=== PATIENT | male | born 1985 | race Caucasian/White ===

== ENCOUNTER 2024-11-08 11:38 | Inpatient (IN) | payer OTHER ==
[~2024-11-08] VITALS: Ht 190.5 cm; Wt 186.8 kg
[~2024-11-08 11:38] MED LIST: AZIT250 PO; Percocet 5-3251 EACH PO
[2024-11-08 12:41] LABS: BASOPHILS ABSOLUTE AUTO 0.04 K/mm3 (0.00-0.23); BASOPHILS PERCENT AUTO 0 % (0-2); EOSINOPHILS PERCENT AUTO 0 % (0-6); Hematocrit 42.7 % (37.0-53.0); Hemoglobin 14.9 g/dL (13.5-17.5); IMMATURE GRAN ABSOLUTE AUTO 0.09 K/mm3 (0.00-0.10); IMMATURE GRAN PERCENT AUTO 0 % (0-1); LYMPHOCYTES ABSOLUTE AUTO 0.99 K/mm3 (0.84-5.20); LYMPHOCYTES PERCENT AUTO 5 % (21-46); MONOCYTES ABSOLUTE AUTO 1.23 K/mm3 (0.16-1.47); MONOCYTES PERCENT AUTO 6 % (4-13); Mean Corpuscular HGB 28.5 pg (26.0-34.0); Mean Corpuscular HGB Conc 34.9 g/dL (31.5-36.5); Mean Corpuscular Volume 82 fL (80-100); Mean Platelet Volume 8.9 fL (9.1-12.4); NEUTROPHILS ABSOLUTE AUTO 18.33 K/mm3 (1.96-9.15); NEUTROPHILS PERCENT AUTO 89 % (41-73); Platelet Count 193 K/mm3 (150-400); RDW Coefficient Variation 12.8 % (11.7-14.2); Red Blood Cell Count 5.23 M/mm3 (4.30-5.90); White Blood Cell Count 20.68 K/mm3 (4.00-11.30)
[2024-11-08 13:05] LABS: CORONAVIRUS COVID-19 AG Negative (NEGATIVE); INFLUENZA A AG Negative (NEGATIVE); INFLUENZA B AG Negative (NEGATIVE)
[2024-11-08 13:06] LABS: Albumin, Blood 3.1 g/dL (3.4-5.0); Albumin/Globulin Ratio 0.6 (0.8-1.8); Bilirubin, Total 1.2 mg/dL (0.1-1.0); Bun/Creatinine Ratio 12.6 (12.0-20.0); Calcium, Blood 8.8 mg/dL (8.5-10.1); Creatinine, Blood 0.79 mg/dL (0.60-1.20); Globulin, Blood 4.8 g/dL (2.2-4.0); Potassium, Blood 3.5 mmol/L (3.5-5.5); Total Protein, Blood 7.9 g/dL (6.4-8.2)
[2024-11-08] MEDS ORDERED: NS 1,000 ML IV SCH (13:35)
[2024-11-08] MEDS ORDERED: Azithromycin 500 MG in NS 250 ML IV ONE (13:50)
[2024-11-08] MEDS ORDERED: Ondansetron HCl 2 MG / ML 2ML Vial IV ONE (13:50)
[2024-11-08] MEDS ORDERED: CefTRIAXone Sodium 1,000 MG in NS 100 ML IV ONE (13:50)
[2024-11-08] MEDS ORDERED: Midazolam HCl 1MG / ML 2ML Vial IV ONE (15:01)
[2024-11-08] MEDS ORDERED: Propofol 10mg/ml 20 ml Vial (Procedural) IV ONE (15:01)
[2024-11-08] MEDS ORDERED: Ketamine HCl 100 MG / ML 5ML Vial IV ONE (15:01)
[2024-11-08] MEDS ORDERED: NS 1,000 ML IV ONE ×2 (15:10→16:46)
[2024-11-08] MEDS ORDERED: Albuterol 2.5 MG/3 ML VIAL INH PRN (15:10)
[2024-11-08] MEDS ORDERED: Acetaminophen 325 MG TABLET PO PRN (15:10)
[2024-11-08] MEDS ORDERED: FLU VACC TS2024-25(6MOS UP)/PF 45 MCG/0.5 ML SYRINGE IM PRN (15:15)
[2024-11-08] MEDS ORDERED: Ipratropium/Albuterol SulF 2.5-0.5MG/3 ML Amp INH SCH (15:15)
[2024-11-08 15:46] LABS: Base Excess Venous -1.4 mmol/L; Bicarbonate Venous 23.9 mmol/L (24.0-30.0); PCO2 Venous 30.7 mmHg (38-42); pH Blood Venous 7.47 (7.34-7.37)
[2024-11-08 17:59] VITALS: BP 147/85
--- NOTE | 2024-11-08 18:48 | NUR ---
SHIFT SUMMARY PT A&OX4, AMB W/ SBA, ON 4L O2 NC, TOLERATING PO, AND DENIED PAIN. PT TEMP ELEVATED, NOTIFIED DURING ROUND ON PT. CALL LIGHT WITHIN REACH AND PT ABLE TO MAKE NEEDS KNOWN.
[2024-11-08] MEDS ORDERED: Mometasone/Formoterol MDI 200/5 mcg 13 GM INH SCH (19:20)
[2024-11-08 19:59] VITALS: BP 134/64
[2024-11-08] MEDS ORDERED: GuaiFENesin 600 MG TabCR PO SCH (21:00)
[2024-11-08] MEDS ORDERED: Temazepam 15 MG Cap PO ONE (22:35)
[2024-11-09 03:47] VITALS: BP 178/87
--- NOTE | 2024-11-09 04:40 | NUR ---
SHIFT SUMMARY PT ALERT AND ORIENTED TIMES 4. PT ADMITTED FOR SEPSIS DUE TO PNEUMONIA. PT HAS HISTORY OF ASTHMA AND SLEEP APNEA. PT IS STAND BY ASSIST TIMES ONE. MEDICATION WHOLE WITH WATER. PT IS RECEPTIVE TO CARE. PT IS ON 4L OF O2, USES HIS OWN C-PAP MACHINE. OBTAINED ORDER FROM VIAL GAUGER DR FOR TEMAZEPAM FOR SLEEP. CALL LIGHT WITHIN REACH, RAILS TIMES 2, BED IN LOW POSITION.
[2024-11-09 05:29] LABS: Hematocrit 39.9 % (37.0-53.0); Hemoglobin 13.7 g/dL (13.5-17.5); Mean Corpuscular HGB Conc 34.3 g/dL (31.5-36.5); Mean Corpuscular Volume 81 fL (80-100); Mean Platelet Volume 9.6 fL (9.1-12.4); Platelet Count 212 K/mm3 (150-400); RDW Coefficient Variation 12.8 % (11.7-14.2); RDW Standard Deviation 38.1 fL (35.1-46.3); White Blood Cell Count 22.17 K/mm3 (4.00-11.30)
[2024-11-09 05:50] LABS: Bun/Creatinine Ratio 12.4 (12.0-20.0); Calcium, Blood 7.9 mg/dL (8.5-10.1); Creatinine, Blood 1.05 mg/dL (0.60-1.20); Potassium, Blood 2.9 mmol/L (3.5-5.5)
[2024-11-09 07:15] VITALS: BP 166/84
[2024-11-09] MEDS ORDERED: NS 250 ML IV PRN (07:25)
[2024-11-09] MEDS ORDERED: Potassium Chloride 20 MEQ TabCR PO ONE (08:10)
[2024-11-09] MEDS ORDERED: Enoxaparin 40 MG/0.4 ML SYR SC SCH (09:00)
[2024-11-09] MEDS ORDERED: CefTRIAXone Sodium 1,000 MG in NS 100 ML IV SCH (09:00)
[2024-11-09] MEDS ORDERED: Azithromycin 500 MG in NS 250 ML IV SCH (09:00)
[2024-11-09 09:37] LABS: Acinetobacter baumannii DNA Not Detected copy/mL (NOT DETECT); Enterobacter cloacae DNA Not Detected copy/mL (NOT DETECT); Escherichia coli DNA Not Detected copy/mL (NOT DETECT); Haemophilus influenzae DNA Not Detected copy/mL (NOT DETECT); Klebsiella aerogenes DNA Not Detected copy/mL (NOT DETECT); Klebsiella oxytoca DNA Not Detected copy/mL (NOT DETECT); Klebsiella pneumoniae DNA Not Detected copy/mL (NOT DETECT); Moraxella catarrhalis DNA Not Detected copy/mL (NOT DETECT); Proteus sp DNA Not Detected copy/mL (NOT DETECT); Pseudomonas aeruginosa DNA Not Detected copy/mL (NOT DETECT); Serratia marcescens DNA Not Detected copy/mL (NOT DETECT)
[2024-11-09 09:38] LABS: Staphylococcus aureus DNA Detected Bin >=10^7 copy/mL (NOT DETECT); Streptococcus agalactiae DNA Not Detected copy/mL (NOT DETECT); Streptococcus pneumoniae DNA Not Detected copy/mL (NOT DETECT); Streptococcus pyogenes DNA Not Detected copy/mL (NOT DETECT); mecA/C and MREJ Resist Gene Detected
[2024-11-09 09:39] LABS: Adenovirus DNA Not Detected (NOT DETECT); Chlamydia pneumonia Not Detected (NOT DETECT); Human Coronavirus RNA Not Detected (NOT DETECT); Human Metapneumovirus RNA Not Detected (NOT DETECT); Influenza virus B RNA Not Detected (NOT DETECT); Legionella pneumophila Not Detected (NOT DETECT); Mycoplasma pneumoniae Not Detected (NOT DETECT); Parainfluenza virus RNA Not Detected (NOT DETECT); Respiratory syncytial Vir RNA Not Detected (NOT DETECT); Rhinovirus+Enterovirus RNA Not Detected (NOT DETECT)
[2024-11-09 16:22] VITALS: BP 177/102
--- NOTE | 2024-11-09 17:47 | NUR ---
SHIFT SUMMARY PT'S SPUTUM POSITIVE FOR FLU, ISOLATION ORDER IN EM[facility]. PT HAD CT THIS SHIFT, SEE IMAGING. MRI ORDERED, BUT PT UNABLE TO COMPLETE DUE TO WEIGHT LIMIT. NOTIFIED AND AWARE. NO OTHER ACUTE CHANGES. CALL LIGHT WITHIN REACH AND PT ABLE TO MAKE NEEDS KNOWN.
[2024-11-09 20:57] VITALS: BP 166/77
[2024-11-10 03:16] VITALS: BP 124/113
[2024-11-10 04:49] LABS: Hematocrit 36.8 % (37.0-53.0); Hemoglobin 13.1 g/dL (13.5-17.5); Mean Corpuscular HGB Conc 35.6 g/dL (31.5-36.5); Mean Corpuscular Volume 79 fL (80-100); Mean Platelet Volume 9.1 fL (9.1-12.4); Platelet Count 245 K/mm3 (150-400); RDW Coefficient Variation 12.9 % (11.7-14.2); RDW Standard Deviation 36.8 fL (35.1-46.3); Red Blood Cell Count 4.68 M/mm3 (4.30-5.90); White Blood Cell Count 21.98 K/mm3 (4.00-11.30)
[2024-11-10 05:15] LABS: Albumin, Blood 2.4 g/dL (3.4-5.0); Anion Gap 11 mmol/L (3-11); Blood Urea Nitrogen 12 mg/dL (8-24); Bun/Creatinine Ratio 14.3 (12.0-20.0); CO2, Blood 22 mmol/L (21-32); Calcium, Blood 8.3 mg/dL (8.5-10.1); Chloride, Blood 102 mmol/L (98-108); Creatinine, Blood 0.84 mg/dL (0.60-1.20); Glomerular Filtration Rate 115 (60-); Glucose, Blood 139 mg/dL (70-99); Magnesium, Blood 1.6 mg/dL (1.6-2.4); Phosphorus, Blood 1.5 mg/dL (2.5-4.9); Potassium, Blood 2.8 mmol/L (3.5-5.5); Sodium, Blood 132 mmol/L (136-145)
--- NOTE | 2024-11-10 05:22 | NUR ---
SHIFT SUMMARY PT ALERT AND ORIENTED TIMES 4. PT ADMITTED FOR SEPSIS DUE TO PNEUMONIA. PT HAS HISTORY OF ASTHMA AND SLEEP APNEA. PT IS STAND BY ASSIST TIMES ONE. MEDICATION WHOLE WITH WATER. PT IS RECEPTIVE TO CARE. PT IS ON 4L OF O2, USES HIS OWN C-PAP MACHINE. PT TOOK SHOWER TONIGHT.APPEARED TO SLEEP ON AND OFF DURING SHIFT. PT HAD TEMP OF 103, TYLENOL ADMINISTERED AND TEMP RE-CHECKED. PT ABLE TO AMBULATE TO USE TOILET. CALL LIGHT WITHIN REACH, RAILS TIMES 2, BED IN LOW POSITION.
[2024-11-10 07:38] VITALS: BP 153/107
[2024-11-10] MEDS ORDERED: Potassium Phosphate Dibasic 25 MM in Dextrose 5% 500 ML IV STA (08:01)
[2024-11-10] MEDS ORDERED: Potassium Phosphate Dibasic 30 MM in Dextrose 5% 500 ML IV STA (08:04)
[2024-11-10] MEDS ORDERED: Prochlorperazine Edisylate 10 mg Vial IV PRN (10:20)
[2024-11-10] MEDS ORDERED: Vancomycin HCL 2,500 MG in NS 500 ML IV SCH (15:00)
[2024-11-10 15:35] VITALS: BP 155/91
--- NOTE | 2024-11-10 19:33 | NUR ---
PATIENT STARTED ON VANCOMYCIN, ALERT AND OREINTED X4, PLEASANT TO CARE, NOT INAPPROPRIATE TO STAFF, ENCOURAGED AM SPUTUMN FOR SAMPLE, FAMILY VISITED TODAY, PATIENT SHOWERED, CALL LIGHT WITH IN REACH, CPAP ON, CALL LIGHT WITH IN REACH
[2024-11-10 20:41] VITALS: BP 148/96
[2024-11-10] MEDS ORDERED: Doxycycline Hyclate 100 MG TAB PO SCH (21:00)
[2024-11-10] MEDS ORDERED: Melatonin 5 MG Tablet PO PRN (21:00)
[2024-11-10] MEDS ORDERED: Vancomycin HCL 1,500 MG in NS 250 ML IV SCH (23:00)
[2024-11-11 05:15] VITALS: BP 150/98
[2024-11-11 07:46] VITALS: BP 186/99
[2024-11-11 08:43] LABS: Hematocrit 36.6 % (37.0-53.0); Hemoglobin 12.7 g/dL (13.5-17.5); Mean Corpuscular HGB 27.9 pg (26.0-34.0); Mean Corpuscular HGB Conc 34.7 g/dL (31.5-36.5); Mean Corpuscular Volume 80 fL (80-100); Platelet Count 269 K/mm3 (150-400); RDW Coefficient Variation 13.1 % (11.7-14.2); RDW Standard Deviation 37.9 fL (35.1-46.3); Red Blood Cell Count 4.55 M/mm3 (4.30-5.90); White Blood Cell Count 17.95 K/mm3 (4.00-11.30)
[2024-11-11 09:02] LABS: Bun/Creatinine Ratio 14.7 (12.0-20.0); Calcium, Blood 8.3 mg/dL (8.5-10.1); Creatinine, Blood 0.75 mg/dL (0.60-1.20)
[2024-11-11] MEDS ORDERED: Potassium Chloride 20 MEQ TabCR PO ONE (12:35)
[2024-11-11 14:37] LABS: Vancomycin, Trough 11.7 ug/mL (5.0-10.0)
[2024-11-11 16:44] VITALS: BP 168/96
--- NOTE | 2024-11-11 18:17 | NUR ---
NO ACUTE CHANGES, ECHO TODAY 50-60%, MORE AMBULATORY TODAY, PLEASANT AND COOPERATIVE, 98% ON RA, ENCOURAGED DEEP BREATHING, CALL LIGHT WITH IN REACH, WILL RELAY TO PM RN
[2024-11-11 20:22] VITALS: BP 151/91
[2024-11-12 04:33] VITALS: BP 143/80
[2024-11-12 05:30] LABS: Hematocrit 35.5 % (37.0-53.0); Hemoglobin 12.1 g/dL (13.5-17.5); Mean Corpuscular HGB 27.5 pg (26.0-34.0); Mean Corpuscular HGB Conc 34.1 g/dL (31.5-36.5); Mean Corpuscular Volume 81 fL (80-100); Mean Platelet Volume 9.2 fL (9.1-12.4); Platelet Count 288 K/mm3 (150-400); RDW Coefficient Variation 13.2 % (11.7-14.2); RDW Standard Deviation 38.8 fL (35.1-46.3); White Blood Cell Count 16.57 K/mm3 (4.00-11.30)
[2024-11-12 06:01] LABS: Albumin, Blood 2.1 g/dL (3.4-5.0); Anion Gap 10 mmol/L (3-11); Blood Urea Nitrogen 15 mg/dL (8-24); Bun/Creatinine Ratio 19.1 (12.0-20.0); CO2, Blood 26 mmol/L (21-32); Chloride, Blood 102 mmol/L (98-108); Creatinine, Blood 0.79 mg/dL (0.60-1.20); Glomerular Filtration Rate 117 (60-); Glucose, Blood 117 mg/dL (70-99); Magnesium, Blood 1.8 mg/dL (1.6-2.4); Phosphorus, Blood 3.8 mg/dL (2.5-4.9); Potassium, Blood 2.8 mmol/L (3.5-5.5); Sodium, Blood 135 mmol/L (136-145)
[2024-11-12] MEDS ORDERED: Potassium Chloride 20 MEQ TabCR PO ONE (07:40)
[2024-11-12 08:04] VITALS: BP 149/81
[2024-11-12 16:27] VITALS: BP 138/107
--- NOTE | 2024-11-12 17:05 | NUR ---
PT REPORTS TO THIS RN THAT IV IS TENDER, SWOLLEN AND RED. SWELLING NOTEDON LEFT WRIST AT IV INSERTION SITE. ARM SLIGHTLY WARM WITH SLIGHT REDNESS EXTENDING UP 3/4 OF FOREARM. PT EDUCATION PROVIDED TO ELEVATE AND APPLY WARM COMPRESSES TO LEFT ARM. WARM COMPRESS GIVEN TO PATIENT AND PATIENT IS ELEVATING EXTREMITY INSTRUCTED
[2024-11-12 19:14] VITALS: BP 160/89
[2024-11-13] VITALS (15 sets, daily range): BP systolic 145–171; BP diastolic 80–111
[2024-11-13 06:15] LABS: Hemoglobin 12.4 g/dL (13.5-17.5); Mean Corpuscular HGB 28.1 pg (26.0-34.0); Mean Corpuscular HGB Conc 34.4 g/dL (31.5-36.5); Mean Corpuscular Volume 81 fL (80-100); Mean Platelet Volume 9.4 fL (9.1-12.4); Platelet Count 270 K/mm3 (150-400); RDW Coefficient Variation 13.3 % (11.7-14.2); RDW Standard Deviation 39.7 fL (35.1-46.3); Red Blood Cell Count 4.42 M/mm3 (4.30-5.90); White Blood Cell Count 14.97 K/mm3 (4.00-11.30)
[2024-11-13 06:57] LABS: Magnesium, Blood 1.9 mg/dL (1.6-2.4)
[2024-11-13 06:58] LABS: Albumin, Blood 2.1 g/dL (3.4-5.0); Anion Gap 8 mmol/L (3-11); Blood Urea Nitrogen 15 mg/dL (8-24); CO2, Blood 28 mmol/L (21-32); Calcium, Blood 8.2 mg/dL (8.5-10.1); Chloride, Blood 102 mmol/L (98-108); Creatinine, Blood 0.75 mg/dL (0.60-1.20); Glomerular Filtration Rate 119 (60-); Glucose, Blood 111 mg/dL (70-99); Phosphorus, Blood 3.9 mg/dL (2.5-4.9); Potassium, Blood 3.1 mmol/L (3.5-5.5); Sodium, Blood 135 mmol/L (136-145)
[2024-11-13] MEDS ORDERED: Potassium Chloride 20 MEQ TabCR PO ONE (08:00)
[2024-11-13] MEDS ORDERED: NS 1,000 ML IV ONE (09:17)
[2024-11-13] MEDS ORDERED: Benzocaine Oral Spray 0.5ML UD ONE (09:25)
[2024-11-13] MEDS ORDERED: Albuterol 2.5 MG/3 ML VIAL ONE (10:00)
--- NOTE | 2024-11-13 10:05 | NUR ---
ALBUTEROL NEB TREATMENT (ALBUTEROL SULFATE 2.5 MG/3 ML) GIVEN PER VERBAL ORDER BY DR SALDAÑA FOR PRE-PROCEDURE JAY JAY. MEDICATION PULLED FROM LAB PYXIS.
--- NOTE | 2024-11-13 10:48 | NUR ---
PATIENT TOELRATED JAY JAY PROCEDURE WELL WITH ANESTHEISA. PATIENT AWAKE, BUT DROWSY. PATEINT RESTING COMFORTABLY. VSS
[2024-11-13 15:20] LABS: Vancomycin, Trough 11.9 ug/mL (5.0-10.0)
[2024-11-13] MEDS ORDERED: Vancomycin HCL 1,750 MG in NS 500 ML IV SCH (16:00)
--- NOTE | 2024-11-13 17:24 | NUR ---
SHIFT SUMMARY: PT A&O X4. PLEASANT AND COOPERATIVE WITH CARE. INDEPENDENT IN ROOM. CONSULT WITH DR. HUGHES COMPLETED THIS AM FOR JAY JAY PROCEDURE. PROCEDURE COMPLETED SHOWING NO EVIDENCE OF ENDOCARDITIS. PLAN FOR REPEAT BLOOD CULTURES TOMORROW. PT POSSIBLY NEEDING PICC LINE D/T NEED FOR OUTPT ABX. CALL LIGHT IN REACH. BED IN LOWEST POSITION.
[2024-11-14 03:55] VITALS: BP 155/88
--- NOTE | 2024-11-14 06:11 | NUR ---
SHIFT SUMMARY PATIENT IS ALERT AND ORIENTED. PATIENT HAS HAD NO ACUTE EVENTS THIS SHIFT. PATIENT HAS BEEN IND IN ROOM THIS SHIFT. POSSIBLE PICC LINE NEEDED FOR OUTPATIENT ABX. PATIENT HAS NO COMPLAINTS OF PAIN, NAUSEA, SOB OR VOMITTING THIS SHIFT. BED IN LOCKED AND LOWEST POSITION. CALL LIGHT IN PLACE.
[2024-11-14 07:34] VITALS: BP 136/89
[2024-11-14 11:32] LABS: Hematocrit 35.2 % (37.0-53.0); Hemoglobin 12.2 g/dL (13.5-17.5); Mean Corpuscular HGB 28.3 pg (26.0-34.0); Mean Corpuscular HGB Conc 34.7 g/dL (31.5-36.5); Mean Corpuscular Volume 82 fL (80-100); Mean Platelet Volume 8.9 fL (9.1-12.4); Platelet Count 320 K/mm3 (150-400); RDW Coefficient Variation 13.2 % (11.7-14.2); RDW Standard Deviation 39.8 fL (35.1-46.3); Red Blood Cell Count 4.31 M/mm3 (4.30-5.90); White Blood Cell Count 13.86 K/mm3 (4.00-11.30)
[2024-11-14 12:07] LABS: Albumin, Blood 2.1 g/dL (3.4-5.0); Anion Gap 9 mmol/L (3-11); Blood Urea Nitrogen 13 mg/dL (8-24); Bun/Creatinine Ratio 18.1 (12.0-20.0); CO2, Blood 25 mmol/L (21-32); Chloride, Blood 107 mmol/L (98-108); Creatinine, Blood 0.72 mg/dL (0.60-1.20); Glomerular Filtration Rate 121 (60-); Glucose, Blood 106 mg/dL (70-99); Phosphorus, Blood 2.9 mg/dL (2.5-4.9); Potassium, Blood 3.5 mmol/L (3.5-5.5); Sodium, Blood 137 mmol/L (136-145)
[2024-11-14 15:16] VITALS: BP 139/94
[2024-11-14 15:26] LABS: Vancomycin, Trough 17.9 ug/mL (5.0-10.0)
--- NOTE | 2024-11-14 15:42 | NUR ---
CARE NOTE THIS RN NOTIFIED DR. WILSON AT [facility] [id number] THAT PT COULD NOT RECIEVE HEAD MRI DUE TO EXCEEDING TABLE WEIGHT PER HALF BACKER REPORT.
--- NOTE | 2024-11-14 18:02 | NUR ---
SHIFT SUMMARY PT IS ALERT AND ORIENTED X 4, HE HAS BEEN INDEPENDENT/A SBA IN ROOM. HE REPORTS FATIGUE W/ EXERTION BUT DENIES FEELING SOB. VSS, SP02 MAINTAINED >95% VIA RA WHEN AWAKE OR HOME CPAP WHILE SLEEPING. HE DENIES FEELINGS OF CHEST PAIN/PRESSURE, LIGHTHEADEDNESS/DIZZINESS OR NAUSEA. HE REPORTS NUMBNESS/TINGLING IN R ARM, DR. WILSON AWARE. HE ALSO HAS REPORTED PAIN/TENDERNESS IN L ARM DUE TO IV INFILTRATION, IV INFILTRATION SITE HAS REMAINED THE SAME SINCE PREVIOUS ASSESSMENTS. FAMILY IS CURRENTLY AT BEDSIDE. CALL LIGHT IS W/IN REACH.
[2024-11-14 19:12] VITALS: BP 151/94
[2024-11-15 03:50] VITALS: BP 153/97
[2024-11-15 06:01] LABS: Bun/Creatinine Ratio 18.5 (12.0-20.0); Calcium, Blood 7.7 mg/dL (8.5-10.1); Creatinine, Blood 0.7 mg/dL (0.60-1.20); Potassium, Blood 3.7 mmol/L (3.5-5.5)
[2024-11-15 07:27] VITALS: BP 132/94
[2024-11-15 10:29] LABS: BASOPHILS ABSOLUTE AUTO 0.04 K/mm3 (0.00-0.23); BASOPHILS PERCENT AUTO 0 % (0-2); EOSINOPHILS ABSOLUTE AUTO 0.27 K/mm3 (0.00-0.68); EOSINOPHILS PERCENT AUTO 2 % (0-6); Hematocrit 36.3 % (37.0-53.0); Hemoglobin 12.4 g/dL (13.5-17.5); IMMATURE GRAN ABSOLUTE AUTO 0.21 K/mm3 (0.00-0.10); IMMATURE GRAN PERCENT AUTO 2 % (0-1); LYMPHOCYTES ABSOLUTE AUTO 1.09 K/mm3 (0.84-5.20); LYMPHOCYTES PERCENT AUTO 9 % (21-46); MONOCYTES ABSOLUTE AUTO 0.66 K/mm3 (0.16-1.47); MONOCYTES PERCENT AUTO 6 % (4-13); Mean Corpuscular HGB Conc 34.2 g/dL (31.5-36.5); Mean Corpuscular Volume 82 fL (80-100); Mean Platelet Volume 8.6 fL (9.1-12.4); NEUTROPHILS ABSOLUTE AUTO 9.76 K/mm3 (1.96-9.15); NEUTROPHILS PERCENT AUTO 81 % (41-73); Platelet Count 339 K/mm3 (150-400); RDW Coefficient Variation 13.2 % (11.7-14.2); RDW Standard Deviation 39.6 fL (35.1-46.3); Red Blood Cell Count 4.43 M/mm3 (4.30-5.90); White Blood Cell Count 12.03 K/mm3 (4.00-11.30)
[2024-11-15 19:33] VITALS: BP 139/93
--- NOTE | 2024-11-15 19:36 | NUR ---
SHIFT SUMMARY: PT A&O X4. PLEASANT AND COOPERATIVE WITH CARE. SB ASSIST TO INDEPENDENT IN ROOM. IV ABX COMPLETED W/O COMPLICATIONS. MEDICATED ONCE PER EMAR FOR HEADACHE. PLAN FOR BLOOD CULTURES TO COME BACK TO PLACE PICC LINE FOR TWO WEEKS OUTPT ABX. PT/OT WORKING WITH PT. CALL LIGHT IN REACH. BED IN LOWEST POSITION.
--- NOTE | 2024-11-16 04:03 | NUR ---
SHIFT SUMMARY ADMITTED FOR RLL PNEUMONIA/SEPSIS. FULL CODE. ISOLATION FOR FLU A+ AND MRSA IN BLOOD. PLAN IS FOR 2 WEEKS ANTIB RX. 1ST SET OF BLOOD CULTURES WERE POSITIVE, 2ND SET IS AWAITING RESULTS. INDEPENDENT IN ROOM. ON RA DURING THE DAY, AT HS HE USES A CPAP. JAY JAY TEST REVEALED NO VEGETATIONS, DR. MELCHOR WAS CARDIOLOGY CONSULT FOR THAT. HE IS A&O X4.
[2024-11-16 05:37] VITALS: BP 141/87
[2024-11-16 18:16] LABS: Vancomycin, Trough 19.2 ug/mL (5.0-10.0)
[2024-11-16 18:28] VITALS: BP 151/90
--- NOTE | 2024-11-16 18:40 | NUR ---
NO ACUTE CHANGES, NO GROWTH ON PRELIMINARY BCX2, PLEASANT TO CARE, AMBULATED IN ROOM, WORKED WITH PT/OT, VANCO TROUGH INCREASED, AWAITING NEW VANCO ORDERS, DEEP COUGH, CALL LIGHT WITH IN REACH, EASILY MAKES NEEDS KNOWN, WILL RFELAY TO PM RN
[2024-11-16 19:26] VITALS: BP 140/79
[2024-11-16] MEDS ORDERED: Vancomycin HCL 1,750 MG in NS 500 ML IV SCH (20:00)
[2024-11-16] MEDS ORDERED: Lactobacil 2-S.Thermo-Bifido 1 1 Cap PO SCH (21:00)
--- NOTE | 2024-11-17 04:57 | NUR ---
SHIFT SUMMARY ADMITTED FOR RLL PNEUMONIA. FULL CODE. ISOLATION FOR FLU A AND MRSA IN BLOOD. IV ANTIB RX ARE SCHEDULED. AWAITING 2ND SET OF BLOOD CULTURES. PLAN IS FOR PICC LINE PLACEMENT AND IV ANTIB RX FOR 2 WEEKS. HE IS HOPEFUL FOR DC HOME. HE IS INDEPENDENT, A&O X4, ON RA DURING AM - AND CPAP @ HS. HE WILL SEEK OUTPATIENT MRI FOR UNKNOWN MASS REVEALED IN HEAD CT SCAN. NO NEW CONCERNS THIS SHIFT.
[2024-11-17 05:26] VITALS: BP 158/92
[2024-11-17 07:35] VITALS: BP 146/90
[2024-11-17 08:52] LABS: Influenza virus A RNA Detected (NOT DETECT)
[2024-11-17] MEDS ORDERED: Vancomycin HCL 1,500 MG in NS 250 ML IV SCH (12:00)
[2024-11-17] MEDS ORDERED: Metoprolol Succinate 25 MG TABCR PO SCH (14:00)
[2024-11-17 14:02] VITALS: BP 159/91
[2024-11-17 17:20] VITALS: BP 144/91
--- NOTE | 2024-11-17 18:35 | NUR ---
PT A&OX4, VSS, RA, CPAP WHILE SLEEPING, NON-TELE. PICC PLACED TODAY IN RUE FOR OUT PATIENT ABX, PT EXPRESSES FRUSTRATION WITH STILL BEING IN THE HOSPITAL AND WOULD LIKE TO DISCHARGE POWER. PT INDEPENDENT IN ROOM, CALL LIGHT IN REACH.
[2024-11-17 20:13] VITALS: BP 164/92
--- NOTE | 2024-11-18 05:38 | NUR ---
SHIFT SUMMARY ADMITTED FOR RLL PNEUMONIA/SEPSIS. FULL CODE. PLAN IS FOR 2 WEEKS OF ANTIB RX. BLOOD CULTURE #1 POSITIVE FOR MRSA. BLOOD CULTURE #2 PENDING. CPAP @ HS, RA DURING THE DAY. INDEPENDENT. A&O X4, WITH FLAT AFFECT. PICC LINE IN RUE.
[2024-11-18 05:54] LABS: Hematocrit 36.8 % (37.0-53.0); Hemoglobin 12.5 g/dL (13.5-17.5); Mean Corpuscular Volume 83 fL (80-100); Mean Platelet Volume 8.5 fL (9.1-12.4); Platelet Count 381 K/mm3 (150-400); RDW Coefficient Variation 12.8 % (11.7-14.2); RDW Standard Deviation 38.3 fL (35.1-46.3); Red Blood Cell Count 4.46 M/mm3 (4.30-5.90); White Blood Cell Count 11.38 K/mm3 (4.00-11.30)
[2024-11-18 06:04] VITALS: BP 148/97
[2024-11-18 06:15] LABS: Bun/Creatinine Ratio 20.4 (12.0-20.0); Calcium, Blood 8.4 mg/dL (8.5-10.1); Creatinine, Blood 0.69 mg/dL (0.60-1.20); Potassium, Blood 4.2 mmol/L (3.5-5.5)
[2024-11-18 07:40] VITALS: BP 150/94
[2024-11-18 11:56] LABS: Creatinine, Blood 0.63 mg/dL (0.60-1.20); Vancomycin, Trough 15.7 ug/mL (5.0-10.0)
[2024-11-18] MEDS ORDERED: TraMADol HCl 50 MG Tab PO PRN (15:20)
--- NOTE | 2024-11-18 18:57 | NUR ---
PT C/O WORSENING HEADACHE AND NAUSEA THIS MORNING MEDICATED WITH PRN TYLENOL AND COMPAZINE, THIS RN REPORTED SYMPTOMS TO DR. WILSON. CT W/O CONTRAST ORDERED, WORSENING SUBARACHNOID HEMMHORAGE SHOWN. CT WITH CONTRAST SHOWED POSSIBLE CYSTS AND L MIDLINE SHIFT. MD AWARE. PT MEDICATED FOR PAIN WITH TRAMADOL, MORE EFFECTIVE. CPAP WHILE ASLEEP. IND IN ROOM, ESPERANZA CONTINUES.
[2024-11-18 20:13] VITALS: BP 140/90
[2024-11-18 20:41] VITALS: BP 140/90
--- NOTE | 2024-11-18 23:30 | NUR ---
2330- report called to allan banegas.
== END 2024-11-18 22:31 | disposition short-term general hospital (02) | DRG 871 ==
LOC: ER 11:38 → MEDS 15:08
PROVIDERS: Emergency Medicine; Internal Medicine; ADMIT Internal Medicine
PROC: 3E03329 Introduction of Other Anti-infective into Peripheral Vein, Percutaneous Approach (ICD-10-PCS; principal; 2024-11-08)
PROC: 5A09357 Assistance with Respiratory Ventilation, Less than 24 Consecutive Hours, Continuous Positive Airway Pressure (ICD-10-PCS; 2024-11-08)
PROC: B548ZZA Ultrasonography of Superior Vena Cava, Guidance (ICD-10-PCS; 2024-11-17)
PROC: 02HV33Z Insertion of Infusion Device into Superior Vena Cava, Percutaneous Approach (ICD-10-PCS; 2024-11-17)
DX: A41.02 Sepsis due to Methicillin resistant Staphylococcus aureus (principal); G06.0 Intracranial abscess and granuloma; J10.01 Influenza due to other identified influenza virus with the same other identified influenza virus pneumonia; G93.6 Cerebral edema; I60.9 Nontraumatic subarachnoid hemorrhage, unspecified; J15.212 Pneumonia due to Methicillin resistant Staphylococcus aureus; E87.1 Hypo-osmolality and hyponatremia; I76 Septic arterial embolism; Z68.43 Body mass index [BMI] 50.0-59.9, adult; E66.01 Morbid (severe) obesity due to excess calories; E87.6 Hypokalemia; G47.33 Obstructive sleep apnea (adult) (pediatric); J45.909 Unspecified asthma, uncomplicated; I10 Essential (primary) hypertension; Z98.52 Vasectomy status; Z87.891 Personal history of nicotine dependence
CPT/HCPCS: 0528U; 36415; 36569; 70450; 70460; 71045; 80048; 80053; 80069; 80202; 82565; 82803; 83605; 83690; 83735; 83880; 84145; 84484; 85025; 85027; 85651; 86141; 87040; 87077; 87186; 87428-QW; 93005; 93010; 93306; 93312; 93325; 94640; 94664; 94760; 94762; 97110; 97112; 97162; 97165; 99285-25; A9270; C1751; J0456; J0696; J0780; J1650; J2250; J2405; J2704; J3370; J7030; J7040; J7050; J7060; Q9967

== ENCOUNTER → 2024-11-30 | Outpatient (CLI) | payer OTHER ==
[2024-11-30 13:09] LABS: BASOPHILS ABSOLUTE AUTO 0.05 K/mm3 (0.00-0.23); BASOPHILS PERCENT AUTO 0 % (0-2); EOSINOPHILS ABSOLUTE AUTO 0.12 K/mm3 (0.00-0.68); EOSINOPHILS PERCENT AUTO 1 % (0-6); Hematocrit 44.9 % (37.0-53.0); IMMATURE GRAN ABSOLUTE AUTO 0.23 K/mm3 (0.00-0.10); IMMATURE GRAN PERCENT AUTO 2 % (0-1); LYMPHOCYTES ABSOLUTE AUTO 1.26 K/mm3 (0.84-5.20); LYMPHOCYTES PERCENT AUTO 8 % (21-46); MONOCYTES ABSOLUTE AUTO 2.27 K/mm3 (0.16-1.47); MONOCYTES PERCENT AUTO 15 % (4-13); Mean Corpuscular HGB 27.8 pg (26.0-34.0); Mean Corpuscular HGB Conc 33.4 g/dL (31.5-36.5); Mean Corpuscular Volume 83 fL (80-100); Mean Platelet Volume 9.7 fL (9.1-12.4); NEUTROPHILS PERCENT AUTO 74 % (41-73); Platelet Count 194 K/mm3 (150-400); RDW Coefficient Variation 14.5 % (11.7-14.2); RDW Standard Deviation 43.6 fL (35.1-46.3); Red Blood Cell Count 5.39 M/mm3 (4.30-5.90); White Blood Cell Count 15.03 K/mm3 (4.00-11.30)
[2024-11-30 13:26] LABS: Alanine Aminotransfer (ALT/SGP 157 U/L (12-78); Albumin/Globulin Ratio 0.8 (0.8-1.8); Alk Phos 59 U/L (50-136); Anion Gap 12 mmol/L (3-11); Aspartate Aminotrans (AST/SGOT 29 U/L (12-37); Bilirubin, Total 0.7 mg/dL (0.1-1.0); Blood Urea Nitrogen 25 mg/dL (8-24); Bun/Creatinine Ratio 37.1 (12.0-20.0); C-REACTIVE PROTEIN, EXT RANGE <0.290 mg/dL (0.000-0.300); CO2, Blood 26 mmol/L (21-32); Calcium, Blood 8.8 mg/dL (8.5-10.1); Chloride, Blood 99 mmol/L (98-108); Creatinine, Blood 0.67 mg/dL (0.60-1.20); Globulin, Blood 3.9 g/dL (2.2-4.0); Glomerular Filtration Rate 123 (60-); Glucose, Blood 94 mg/dL (70-99); Potassium, Blood 4.2 mmol/L (3.5-5.5); Sodium, Blood 133 mmol/L (136-145); Total Protein, Blood 6.9 g/dL (6.4-8.2); Vancomycin, Trough 14.7 ug/mL (5.0-10.0)
== END ==
LOC: LAB 11:00 → LAB SHORT 11:00
PROVIDERS: Internal Medicine
DX: A41.9 Sepsis, unspecified organism (principal)
CPT/HCPCS: 80053; 80202; 85025; 86140

== ENCOUNTER → 2024-12-04 | Outpatient (CLI) | payer OTHER ==
[2024-12-04 15:05] LABS: BASOPHILS ABSOLUTE AUTO 0.02 K/mm3 (0.00-0.23); BASOPHILS PERCENT AUTO 0 % (0-2); EOSINOPHILS ABSOLUTE AUTO 0.31 K/mm3 (0.00-0.68); EOSINOPHILS PERCENT AUTO 4 % (0-6); Hematocrit 43.4 % (37.0-53.0); Hemoglobin 14.8 g/dL (13.5-17.5); IMMATURE GRAN ABSOLUTE AUTO 0.09 K/mm3 (0.00-0.10); IMMATURE GRAN PERCENT AUTO 1 % (0-1); LYMPHOCYTES ABSOLUTE AUTO 1.55 K/mm3 (0.84-5.20); LYMPHOCYTES PERCENT AUTO 18 % (21-46); MONOCYTES ABSOLUTE AUTO 1.44 K/mm3 (0.16-1.47); MONOCYTES PERCENT AUTO 16 % (4-13); Mean Corpuscular HGB 28.8 pg (26.0-34.0); Mean Corpuscular HGB Conc 34.1 g/dL (31.5-36.5); Mean Corpuscular Volume 84 fL (80-100); NEUTROPHILS ABSOLUTE AUTO 5.35 K/mm3 (1.96-9.15); NEUTROPHILS PERCENT AUTO 61 % (41-73); Platelet Count 168 K/mm3 (150-400); RDW Coefficient Variation 14.9 % (11.7-14.2); RDW Standard Deviation 45.5 fL (35.1-46.3); Red Blood Cell Count 5.14 M/mm3 (4.30-5.90); White Blood Cell Count 8.76 K/mm3 (4.00-11.30)
[2024-12-04 15:31] LABS: C-REACTIVE PROTEIN, EXT RANGE 0.751 mg/dL (0.000-0.300)
[2024-12-04 15:33] LABS: Alanine Aminotransfer (ALT/SGP 126 U/L (12-78); Albumin/Globulin Ratio 0.9 (0.8-1.8); Alk Phos 53 U/L (50-136); Anion Gap 13 mmol/L (3-11); Aspartate Aminotrans (AST/SGOT 24 U/L (12-37); Bilirubin, Total 0.8 mg/dL (0.1-1.0); Blood Urea Nitrogen 24 mg/dL (8-24); Bun/Creatinine Ratio 35.3 (12.0-20.0); CO2, Blood 24 mmol/L (21-32); Calcium, Blood 8.3 mg/dL (8.5-10.1); Chloride, Blood 101 mmol/L (98-108); Creatinine, Blood 0.68 mg/dL (0.60-1.20); Globulin, Blood 3.2 g/dL (2.2-4.0); Glomerular Filtration Rate 123 (60-); Glucose, Blood 117 mg/dL (70-99); Potassium, Blood 3.8 mmol/L (3.5-5.5); Sodium, Blood 134 mmol/L (136-145); Total Protein, Blood 6.2 g/dL (6.4-8.2); Vancomycin, Random 18.1 ug/mL
== END ==
LOC: LAB 10:00 → LAB SHORT 10:00
PROVIDERS: Internal Medicine
DX: A41.9 Sepsis, unspecified organism (principal)
CPT/HCPCS: 80053; 80202; 85025; 86140

== ENCOUNTER → 2024-12-11 | Outpatient (CLI) | payer OTHER ==
[2024-12-11 16:21] LABS: BASOPHILS ABSOLUTE AUTO 0.05 K/mm3 (0.00-0.23); BASOPHILS PERCENT AUTO 1 % (0-2); EOSINOPHILS ABSOLUTE AUTO 0.31 K/mm3 (0.00-0.68); EOSINOPHILS PERCENT AUTO 3 % (0-6); Hematocrit 42.9 % (37.0-53.0); IMMATURE GRAN ABSOLUTE AUTO 0.08 K/mm3 (0.00-0.10); IMMATURE GRAN PERCENT AUTO 1 % (0-1); LYMPHOCYTES PERCENT AUTO 16 % (21-46); MONOCYTES ABSOLUTE AUTO 0.62 K/mm3 (0.16-1.47); MONOCYTES PERCENT AUTO 6 % (4-13); Mean Corpuscular HGB 28.3 pg (26.0-34.0); Mean Corpuscular HGB Conc 32.6 g/dL (31.5-36.5); Mean Corpuscular Volume 87 fL (80-100); Mean Platelet Volume 9.3 fL (9.1-12.4); NEUTROPHILS ABSOLUTE AUTO 7.29 K/mm3 (1.96-9.15); NEUTROPHILS PERCENT AUTO 73 % (41-73); Platelet Count 159 K/mm3 (150-400); RDW Standard Deviation 47.9 fL (35.1-46.3); Red Blood Cell Count 4.94 M/mm3 (4.30-5.90); White Blood Cell Count 9.95 K/mm3 (4.00-11.30)
[2024-12-11 18:53] LABS: Alanine Aminotransfer (ALT/SGP 173 U/L (12-78); Albumin/Globulin Ratio 0.8 (0.8-1.8); Alk Phos 59 U/L (50-136); Anion Gap 10 mmol/L (3-11); Aspartate Aminotrans (AST/SGOT 50 U/L (12-37); Bilirubin, Total 0.7 mg/dL (0.1-1.0); Blood Urea Nitrogen 25 mg/dL (8-24); CO2, Blood 25 mmol/L (21-32); Calcium, Blood 8.4 mg/dL (8.5-10.1); Chloride, Blood 105 mmol/L (98-108); Creatinine, Blood 1.04 mg/dL (0.60-1.20); Globulin, Blood 3.6 g/dL (2.2-4.0); Glomerular Filtration Rate 95 (60-); Glucose, Blood 92 mg/dL (70-99); Sodium, Blood 136 mmol/L (136-145); Total Protein, Blood 6.6 g/dL (6.4-8.2); Vancomycin, Random 1.5 ug/mL
== END ==
LOC: LAB SHORT 09:54 → LAB 09:54
PROVIDERS: Internal Medicine
DX: A41.9 Sepsis, unspecified organism (principal)
CPT/HCPCS: 80053; 80202; 85025; 86140

== ENCOUNTER → 2024-12-18 | Outpatient (CLI) | payer OTHER ==
[2024-12-18 16:25] LABS: BASOPHILS ABSOLUTE AUTO 0.03 K/mm3 (0.00-0.23); BASOPHILS PERCENT AUTO 0 % (0-2); EOSINOPHILS ABSOLUTE AUTO 0.24 K/mm3 (0.00-0.68); EOSINOPHILS PERCENT AUTO 2 % (0-6); Hematocrit 38.9 % (37.0-53.0); Hemoglobin 13.6 g/dL (13.5-17.5); IMMATURE GRAN ABSOLUTE AUTO 0.05 K/mm3 (0.00-0.10); IMMATURE GRAN PERCENT AUTO 0 % (0-1); LYMPHOCYTES ABSOLUTE AUTO 1.77 K/mm3 (0.84-5.20); LYMPHOCYTES PERCENT AUTO 15 % (21-46); MONOCYTES ABSOLUTE AUTO 0.75 K/mm3 (0.16-1.47); MONOCYTES PERCENT AUTO 6 % (4-13); Mean Corpuscular HGB 28.8 pg (26.0-34.0); Mean Corpuscular Volume 82 fL (80-100); Mean Platelet Volume 8.4 fL (9.1-12.4); NEUTROPHILS PERCENT AUTO 76 % (41-73); Platelet Count 184 K/mm3 (150-400); RDW Coefficient Variation 13.9 % (11.7-14.2); RDW Standard Deviation 41.4 fL (35.1-46.3); Red Blood Cell Count 4.72 M/mm3 (4.30-5.90); White Blood Cell Count 11.74 K/mm3 (4.00-11.30)
[2024-12-18 18:19] LABS: C-REACTIVE PROTEIN, EXT RANGE 2.86 mg/dL (0.000-0.300)
[2024-12-18 18:40] LABS: Albumin, Blood 3.3 g/dL (3.4-5.0); Albumin/Globulin Ratio 0.8 (0.8-1.8); Bilirubin, Total 0.6 mg/dL (0.1-1.0); Bun/Creatinine Ratio 25.2 (12.0-20.0); Calcium, Blood 9.4 mg/dL (8.5-10.1); Creatinine, Blood 1.51 mg/dL (0.60-1.20); Potassium, Blood 3.7 mmol/L (3.5-5.5); Total Protein, Blood 7.3 g/dL (6.4-8.2)
== END | disposition home or self-care (01) ==
LOC: LAB 16:08 → LAB SHORT 16:08
PROVIDERS: Internal Medicine Infectious Disease
DX: G06.0 Intracranial abscess and granuloma (principal)
CPT/HCPCS: 80053; 85025; 86140

== ENCOUNTER → 2024-12-25 | Outpatient (CLI) | payer OTHER | LOC: LAB 13:30 → LAB SHORT 13:30 | DX: G06.0 Intracranial abscess and granuloma (principal); Z79.2 Long term (current) use of antibiotics ==